=== PATIENT | male | born 1995 | race Caucasian/White ===

== ENCOUNTER 2017-03-27 05:30 | Inpatient (IN) | payer OTHER ==
[~2017-03-27] VITALS: Ht 190.5 cm; Wt 77.3 kg
[~2017-03-27 05:30] MED LIST: ALPRAZOLAM0.5 M3 PO; AMITRIPTYLINE H50 M1 PO; AUGMENTIN 875-1 EAC2 PO; BACTRIM DS TAB1 EAC2 PO; COZAAR100 M1 PO; DOCUSATE SODIU100 M2 PO; HYDROCODON-ACE1 EA16 PO; LYRICA100 MG/CAP PO; NEURONTIN600 M1 PO; NO HOME MEDS; NORCO 5-325 TA1 EACH PO; OMEPRAZOLE20 M3 PO; PERCOCET 10-321 EACH PO; TERAZOSIN HCL5 MG PO; TOPROL XL50 M1 PO; TRIAMTERENE-HC1 EAC3 PO; TYLENOL EXTRA500 M1 PO; VENTOLIN HFA18 G2 INH
== END 2017-03-27 13:40 | DRG 858 ==
LOC: BURN 05:30 → SHSA 05:46 → BURN 09:23
PROVIDERS: ADMIT Surgery
PROC: 0HBBXZZ Excision of Right Upper Arm Skin, External Approach (ICD-10-PCS; principal; 2017-03-27)
PROC: 0HRBX74 Replacement of Right Upper Arm Skin with Autologous Tissue Substitute, Partial Thickness, External Approach (ICD-10-PCS; 2017-03-27)
PROC: 0HBFXZZ Excision of Right Hand Skin, External Approach (ICD-10-PCS; 2017-03-27)
PROC: 0HRFX74 Replacement of Right Hand Skin with Autologous Tissue Substitute, Partial Thickness, External Approach (ICD-10-PCS; 2017-03-27)
PROC: 0HBHXZZ Excision of Right Upper Leg Skin, External Approach (ICD-10-PCS; 2017-03-27)
DX: T81.4XXA Infection following a procedure, initial encounter (principal)
CPT/HCPCS: J0171; J1580; J2175; J3010; J3370